=== PATIENT | male | born 1980 | race Caucasian/White ===

== ENCOUNTER 2017-07-02 01:18 | Emergency (ER) | payer OTHER ==
--- NOTE | ~2017-07-02 | ER ---
PATIENT'S NAME: PHILIPP MONTENEGRO [facility] AGE: 37 Y [address] ROOM: [place] [id number] LOCATION: [facility] ADMIT DATE: 07/02/2017 ER/Outpatient Report DISCHARGE DATE: 07/02/2017 FAMILY PHYSICIAN: PHYSICIAN, NO ATTENDING PHYSICIAN: Alex Parry Time of Arrival: 0118 hours. Time of Evaluation: 0140 hours. CHIEF COMPLAINT: This is a 37-year-old male. He is previously healthy. He is in with a sharp stabbing left-sided chest pain. HISTORY OF PRESENT ILLNESS: He reports he has been driving from [place]. He drove approximately 15 hours today. While he was driving, he developed fairly abrupt onset of a sharp, stabbing, pleuritic left-sided chest pain. PAST MEDICAL HISTORY: He has a history of necrotizing fasciitis as a result of an injury of his right leg just over a year ago. He had a fasciotomy and skin grafting for that. He states he was on blood thinners for a time after that although he was not aware that he has had a blood clot. He states that his legs have been slightly swollen. REVIEW OF SYSTEMS: All other systems are negative. SOCIAL HISTORY: He is a nonsmoker. PHYSICAL EXAMINATION: GENERAL: An alert, cooperative male, who appeared to be moderately uncomfortable, in no acute physiologic distress. SKIN: Warm and dry. Color is normal. VITAL SIGNS: Stable. His O2 saturation is 98% on room air. Blood pressure 144/90, temperature 96.5, and pulse 67. HEAD EARS, EYES, NOSE, AND THROAT: Normal. NECK: Supple. HEART: Regular rate and rhythm without murmur. LUNGS: Clear. Breath sounds are equal. He has no localized chest wall tenderness. ABDOMEN: Soft and nontender. EXTREMITIES: Normal. NEUROLOGIC EXAM: Normal. PATIENT'S NAME: PHILIPP [facility] AGE: 37 Y [address] ROOM: [place] [id number] LOCATION: [facility] ADMIT DATE: 07/02/2017 ER/Outpatient Report DISCHARGE DATE: 07/02/2017 FAMILY PHYSICIAN: PHYSICIAN, NO ATTENDING PHYSICIAN: Alex Paryr DIAGNOSTIC DATA: EKG revealed normal sinus rhythm. He did have an S in lead 1 and Q and inverted T in lead 3, pattern suggestive of acute pulmonary embolism, however, D-dimer was negative and CT pulmonary angiogram was negative. ASSESSMENT: Pleuritic chest pain of uncertain etiology. PLAN: He is given instructions to ambulate every [address] and follow up with his regular doctor as needed. MD BEE ADDISON/modl /[id number] d: 07/02/17 0946 t: 07/05/17 0550, OUTPATIENT REPORT
[2017-07-02 01:51] LABS: BASOPHIL % 0.3 %; EOSINOPHIL # 0.2 K/uL (0.0-0.5); EOSINOPHIL % 3.1 %; HEMATOCRIT 42.3 % (37.0-53.0); HEMOGLOBIN 15.4 g/dL (12.0-17.0); IMMATURE GRANULOCYTE % 0.1 %; LYMPHOCYTE # 2.8 K/uL (0.8-4.0); MCH 29.9 pg (27.0-34.0); MCHC 36.4 gm/dL (32.0-36.5); MCV 82.1 fl (83.0-98.0); MONOCYTE # 0.7 K/uL (0.0-1.0); MONOCYTE % 9.8 %; MPV 9.8 fl (9.4-12.4); NEUTROPHIL # (ANC) 3.4 K/uL (1.4-9.0); NEUTROPHIL % 47.7 %; NRBC % 0 /100WBC (0-0.00); PLATELET COUNT 174 K/uL (150-450); RBC 5.15 M/uL (4.00-6.00); RDW-CV 12.2 % (11.9-14.6); WBC 7.2 K/uL (4.0-11.0)
[2017-07-02 02:01] LABS: INR - (THERAPEUTIC) 1.02 (0.92-1.07); PROTIME 10.7 SECONDS (9.8-11.4); PTT 29 SECONDS (25-32)
[2017-07-02 02:10] LABS: ALBUMIN 3.8 gm/dL (3.5-5.0); ALK PHOS 90 IU/L (33-138); ALT 57 IU/L (12-78); ANION GAP 13.8 (10.0-19.0); AST 28 IU/L (10-40); BLOOD UREA NITROGEN 17 mg/dL (6-24); CALCIUM 8.5 mg/dL (8.5-10.5); CHLORIDE 106 mMol/L (96-110); CO2 23 mMol/L (22-32); CPK 126 IU/L (35-332); CREATININE 1.3 mg/dL (0.6-1.3); MAGNESIUM 2.2 mg/dL (1.8-2.6); POTASSIUM 3.8 mMol/L (3.7-5.1); SODIUM 139 mMol/L (135-145); TOTAL BILIRUBIN 0.4 mg/dL (0.0-1.5); TOTAL PROTEIN 7.3 g/dL (6.0-8.4)
== END 2017-07-02 02:46 | disposition disaster alternative care site (69) ==
LOC: GMED 01:18
PROVIDERS: Emergency Medicine
DX: R07.81 Pleurodynia (principal); Z88.1 Allergy status to other antibiotic agents; Z98.890 Other specified postprocedural states; Z87.891 Personal history of nicotine dependence
CPT/HCPCS: Q9967